=== PATIENT | male | born 2000 | race Caucasian/White ===

== ENCOUNTER 2022-08-19 00:35 | Day surgery (SDC) | payer BC, SELFPAY ==
[2022-08-19] VITALS (8 sets, daily range): BP systolic 114–179; BP diastolic 51–81; PULSE 90–114; RESP 16–18; TEMP 36.1–37; O2SAT 97–100; BMI 29.8
--- NOTE | ~2022-08-19 | XR_ITS ---
EXAMINATION: XR CHEST CLINICAL INFORMATION: Chest pain COMPARISON: None TECHNIQUE: Frontal view of the chest was obtained. FINDINGS: The lungs are well expanded. There is no focal consolidation, edema, or effusion. No pneumothorax. The cardiomediastinal silhouette is within normal limits. No acute osseous abnormality. XR/XR chest 1V IMPRESSION: Clear lungs.
--- NOTE | 2022-08-19 04:34 | ED_ITS ---
HPI - General Adult General Chief complaint: General Medical Stated complaint: trouble swallowing Time Seen by Provider: 08/19/22 04:30 History of Present Illness HPI narrative: Patient is a 22-year-old male presented today with having difficulty swallowing own saliva difficulty swallowing any liquids or solids after eating a piece of steak. Patient denies any chest pain any shortness of breath denies any changes in voice. Vaccinated for COVID. No history of similar symptoms in the past. Symptoms been ongoing for the last 10 hours Related Data Allergies Allergy/AdvReac Type Severity Reaction Status Date / Time tree nut Allergy Unknown Uncoded 08/02/14 00:00 Review of Systems Review of Systems: Positive difficulty swallowing any liquid or solid No changes in voice No changes in breathing. Yes all other systems are reviewed and are negative [facility] Past Medical History Attestation statement: The following information was validated with the patient. Social History Social History Patient Tobacco Use Status: Never used Tobacco Use of substances other than those prescribed or required for medical reasons: Yes Advance Directives: No Advance Directives Information Provided: No Physical Exam ED Vital Signs: Vital Signs - 24 hr 08/19/22 00:45 08/19/22 05:09 Temperature 98.5 F 98.6 F Pulse Rate 100 99 Respiratory Rate 18 16 Blood Pressure 179/74 H 151/81 H Pulse Oximetry 99 100 Oxygen Delivery Method Room Air Room Air BMI result Body Mass Index 29.8 Appearance: Alert. Oriented X3. No acute distress. Holding a bag in front of him Eyes: Pupils equal, round and reactive to light. ENT: Pharynx normal. Neck: Normal inspection. Neck supple. No lymph nodes noted. No crepitus CVS: Normal heart rate and rhythm. Pulses normal. Normal S1 and S2 Respiratory: No respiratory distress. Breath sounds normal. No Wheezing. No rales Abdomen: Soft and nontender. No rigidity. No distention. good BS x4 Skin: Skin warm and dry. Normal skin color. Normal skin turgor. Extremities: No lower extremity edema. Neurovascular intact to all extremities. No Lacerations. No Rash Neuro: Oriented X 3. No motor deficit. No sensory deficit. Moving all extermities. No slurred speech Medical Decision Making MDM Narrative Medical decision making narrative: Signs and symptoms consistent with food impaction. Will go ahead and give some IV fluids. Baseline labs ordered. Will get a COVID test. If the glucagon did not work we will go ahead and contact GI for possible endoscopy Case D/W Dr Lipscomb Lab Data Result diagrams: 08/19/22 05:18 08/19/22 05:18 Labs: Lab Results 08/19/22 08/19/22 08/19/22 Range/Units 05:16 05:18 05:18 WBC 10.6 (4.8-10.8) X10*3/uL RBC 5.47 (4.60-5.80) X10*6/uL Hgb 15.7 (14.0-18.0) g/dl Hct 46.1 (42.0-52.0) % MCV 84.3 (80.0-98.0) fL MCH 28.7 (27.0-33.0) pg MCHC 34.1 (31.0-36.0) g/dl RDW 12.4 (11.0-16.0) % Plt Count 348 (160-400) X10*3/uL MPV 9.9 (9.4-12.4) fL Immature Gran % (Auto) 0.2 (0.0-0.4) % Neut % (Auto) 69.3 (45-73) % Lymph % (Auto) 21.1 (20-40) % [place] % (Auto) 8.1 (2-11) % Eos % (Auto) 0.8 (0-4) % Baso % (Auto) 0.5 (0-2) % Lymph # (Auto) 2.2 (1.2-4.9) X10*3/uL [place] # (Auto) 0.9 (0.1-1.2) X10*3/uL Eos # (Auto) 0.1 (0.0-0.4) X10*3/uL Baso # (Auto) 0.1 (0.0-0.2) X10*3/uL Abs Immat Gran (auto) 0.02 (0.00-0.03) X10*3/uL Absolute Neuts (auto) 7.4 (2.0-8.3) x10*3/uL Absolute Nucleated RBC 0.000 (0.0-0.012) X10*3/uL Nucleated RBC % (auto) 0.0 (0.0-0.2) /100WBC Sodium 144 (135-145) mmol/L Potassium 4.0 (3.3-5.1) mmol/L Chloride 105 (96-108) mmol/L Carbon Dioxide 24 (22-29) mmol/L Anion Gap 19 (12-20) BUN 16 (9-16) mg/dL Creatinine 0.99 (0.5-1.4) mg/dL Estim Creat Clear Calc 145.5 Estimated GFR > 60 Random Glucose 89 (60-115) mg/dL Calcium 10.2 (8.4-10.2) mg/dL Total Bilirubin 0.6 (0.0-1.0) mg/dL Direct Bilirubin 0.2 (0.0-0.5) mg/dL AST 20 (5-37) U/L ALT 25 (0-40) U/L Alkaline Phosphatase 97 (39-117) U/L Total Protein 8.4 H (6.5-8.0) g/dL Albumin 4.9 (3.5-5.0) g/dL Lipase 9 (8-78) U/L COVID-19 ([facility]) Positive A (Negative) COVID-19 Clin Com See Note Discharge Plan Discharge Clinical Impression: Food impaction of esophagus Patient Disposition: Admitted As Inpatient
[2022-08-19] MEDS: 0.9 % Sodium Chloride 1,000 ML 999 ML IV (05:20)
[2022-08-19 05:24] LABS: Basophils Absolute Auto 0.1 X10*3/uL (0.0-0.2); Basophils Percent Auto 0.5 % (0-2); Eosinophils Absolute Auto 0.1 X10*3/uL (0.0-0.4); Eosinophils Percent Auto 0.8 % (0-4); Hematocrit 46.1 % (42.0-52.0); Hemoglobin 15.7 g/dl (14.0-18.0); Imm Gran Abs Auto 0.02 X10*3/uL (0.00-0.03); Imm Gran Pct Auto 0.2 % (0.0-0.4); Lymphocytes Absolute Auto 2.2 X10*3/uL (1.2-4.9); Lymphocytes Percent Auto 21.1 % (20-40); MANUAL DIFF FLAG NO; Mean Corpuscular HGB Conc 34.1 g/dl (31.0-36.0); Mean Corpuscular Hemoglobin 28.7 pg (27.0-33.0); Mean Corpuscular Volume 84.3 fL (80.0-98.0); Mean Platelet Volume 9.9 fL (9.4-12.4); Monocytes Absolute Auto 0.9 X10*3/uL (0.1-1.2); Monocytes Percent Auto 8.1 % (2-11); Neutrophils Absolute Auto 7.4 x10*3/uL (2.0-8.3); Neutrophils Percent Auto 69.3 % (45-73); Platelet Count 348 X10*3/uL (160-400); Red Blood Count 5.47 X10*6/uL (4.60-5.80); Red Cell Distribution Width 12.4 % (11.0-16.0); White Blood Count 10.6 X10*3/uL (4.8-10.8)
[2022-08-19 05:30] LABS: COVID-19 Test Positive (Negative)
[2022-08-19 05:40] LABS: Alanine Aminotransferase 25 U/L (0-40); Albumin Level 4.9 g/dL (3.5-5.0); Alkaline Phosphatase 97 U/L (39-117); Anion Gap 19 (12-20); Aspartate Amino Transferase 20 U/L (5-37); Bilirubin Direct 0.2 mg/dL (0.0-0.5); Bilirubin Total 0.6 mg/dL (0.0-1.0); Blood Urea Nitrogen 16 mg/dL (9-16); Calcium 10.2 mg/dL (8.4-10.2); Carbon Dioxide 24 mmol/L (22-29); Chloride 105 mmol/L (96-108); Creatinine Clr Calc Pharmacy 145.5; Estimated Glomerular Filt Rate > 60; Glucose Random 89 mg/dL (60-115); Lipase 9 U/L (8-78); Sodium 144 mmol/L (135-145); Total Protein 8.4 g/dL (6.5-8.0)
--- NOTE | 2022-08-19 06:48 | PC.NURSE ---
pt able to speak in full sentence. no sob or respiratory distress.
--- NOTE | 2022-08-19 07:55 | PC.NURSE ---
PT AWAITING GI. STILL UNABLE TO SWALLOW SALIVA. MOTHER AT BEDSIDE
--- NOTE | 2022-08-19 08:56 | PM.GICN ---
History of Present Illness Data of Consult Service Date: 08/19/22 Requesting physician: Barbara Byrd Primary Care Provider: Lai Carbajal MD HPI Reason for consult: Food impaction This is a 22-year-old gentleman with no significant past medical history who presented to the emergency room last night for difficulty swallowing. History obtained from the patient, who states that around 6.30 p.m. he was eating steak stirfry when he suddenly felt a piece get stuck in his upper throat. He then proceed to cough and vomit a couple of times. Since then he has not been able to get anything down including his own saliva. Has never had a similar episode before. No personal or fam hx of atopy. In the ER, he was given a glucagon trial without much effect. Currently, continues to have sensation of food stuck in his mid esophagus with chest tightness and some hoarseness of voice. No fevers, chills, shortness of breath. Pt was also incidentally found to be covid negative. 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 Review of Systems Review of Systems: Yes all other systems are reviewed and are negative PMFSH Social History Social History Patient Tobacco Use Status: Never used Tobacco Use of substances other than those prescribed or required for medical reasons: Yes Advance Directives: No Advance Directives Information Provided: No Meds Allergies Allergy/AdvReac Type Severity Reaction Status Date / Time tree nut Allergy Unknown Uncoded 08/02/14 00:00 Physical Exam Vital Signs: Vital Signs: Last Vital Signs Temp 98.6 F 08/19/22 05:09 Pulse 90 08/19/22 07:54 Resp 18 08/19/22 07:54 BP 140/78 H 08/19/22 07:54 Pulse Ox 99 08/19/22 07:54 O2 Del Method 08/19/22 07:54 BMI result Body Mass Index 29.8 Gen appear: No acute distress, well nourished HEENT: no icterus, no cervical lymphadenopathy Chest: No overt resp distress CVS: S1/S2, regular Abd: soft, nontender, nondistended Psych: Stable affect, answering questions appropriately Neuro: A/Ox3 noted to move all extremities spontaneously Ext: no peripheral edema Results Labs CBC & Chem 7: 08/19/22 05:18 08/19/22 05:18 Labs: Short CBC 08/19/22 Range/Units 05:18 WBC 10.6 (4.8-10.8) X10*3/uL Hgb 15.7 (14.0-18.0) g/dl Hct 46.1 (42.0-52.0) % Plt Count 348 (160-400) X10*3/uL BMP 08/19/22 05:18 Sodium 144 Potassium 4.0 Chloride 105 Carbon Dioxide 24 BUN 16 Creatinine 0.99 Calcium 10.2 Liver Function 08/19/22 Range/Units 05:18 Total Bilirubin 0.6 (0.0-1.0) mg/dL Direct Bilirubin 0.2 (0.0-0.5) mg/dL AST 20 (5-37) U/L ALT 25 (0-40) U/L Alkaline Phosphatase 97 (39-117) U/L Albumin 4.9 (3.5-5.0) g/dL Assessment and Plan (1) Food impaction of esophagus: Status: Acute Plan DDx include sporadic obstruction, EoE, esophageal ring/web. Less likely to be stricture or dysmotility. Will plan for urgent endoscopy today for food bolus management. I reviewed the procedure with him and his mother at bedside including possible adverse events of perforation, bleeding, infection. They verbalise understanding and agree to proceed with EGD. Please keep the patient strict NPO. Procedures Date of Service Date of Service: 08/19/22
--- NOTE | 2022-08-19 09:32 | HO.ANESPROP2 ---
HPI - Anesthesia Eval Consult details Narrative: food impaction PMFSH Active Problems Active Problems: All Active Problems (Updated 08/19/22 @ 04:37 by Barbara Byrd MD) Food impaction of esophagus (Acute) Family History Family history of problems with anesthesia: No Surgical History History of Problems with Anesthesia: No Social History Social History Patient Tobacco Use Status: Never used Tobacco Use of substances other than those prescribed or required for medical reasons: Yes Advance Directives: No Advance Directives Information Provided: No Meds Allergies Allergy/AdvReac Type Severity Reaction Status Date / Time tree nut Allergy Unknown Uncoded 08/02/14 00:00 Exam Exam Date and Time: August 19, 2022 0932 Height,Weight and Vital Signs: Height 6 ft Weight 99.79 kg Last Vital Signs Temp 98.6 F 08/19/22 05:09 Pulse 90 08/19/22 07:54 Resp 18 08/19/22 07:54 BP 140/78 H 08/19/22 07:54 Pulse Ox 99 08/19/22 07:54 O2 Del Method 08/19/22 07:54 Pertinent Lab Results Pertinent Lab Results: Laboratory Tests 08/19/22 08/19/22 08/19/22 05:16 05:18 05:18 WBC 10.6 RBC 5.47 Hgb 15.7 Hct 46.1 MCV 84.3 MCH 28.7 MCHC 34.1 RDW 12.4 Plt Count 348 MPV 9.9 Immature Gran % (Auto) 0.2 Neut % (Auto) 69.3 Lymph % (Auto) 21.1 [place] % (Auto) 8.1 Eos % (Auto) 0.8 Baso % (Auto) 0.5 Lymph # (Auto) 2.2 [place] # (Auto) 0.9 Eos # (Auto) 0.1 Baso # (Auto) 0.1 Abs Immat Gran (auto) 0.02 Absolute Neuts (auto) 7.4 Absolute Nucleated RBC 0.000 Nucleated RBC % (auto) 0.0 Sodium 144 Potassium 4.0 Chloride 105 Carbon Dioxide 24 Anion Gap 19 BUN 16 Creatinine 0.99 Estim Creat Clear Calc 145.5 Estimated GFR > 60 Random Glucose 89 Calcium 10.2 Total Bilirubin 0.6 Direct Bilirubin 0.2 AST 20 ALT 25 Alkaline Phosphatase 97 Total Protein 8.4 H Albumin 4.9 Lipase 9 COVID-19 ([facility]) Positive A COVID-19 Clin Com See Note Airway Mallampati Class: II TM Dist: >3cm Neck ROM: Full Heart: [id number] Lungs: cta b/l Assessment and Plan Assessment Anesthesia Assessment: Anesthesia Plan Discussed and Chart Reviewed Final Anesthetic Review Family History of Problems with Anesthesia: No History of Problems with Anesthesia: No NPO: Yes ASA Class: II and Emergency Final Preanesthetic Review: No Changes in Pt Med Stat, Meds/Allgs Chart Reviewed, Consent Obtained/Reviewed and Anes Risks/Benef Reviewed Patient Risk: Intermediate Procedure Risk: Intermediate Assessment/Block/Sedation in SS: Assess/Block/Sedation-SS Anesthetic Plan Anesthetic Plan: GA and Agree w/ Assess. and Plan Disposition: Standard PACU
--- NOTE | 2022-08-19 10:44 | P.OP_ITS ---
Operative Note Operative Note Date of Service: 08/19/22 Narrative: Procedure: Esophagogastroduodenoscopy Endoscopist: Alannah Lipscomb MD Indication: Food impaction Anesthesia Provider: Leyda Han CRNA Anesthesia Type: General ?? EGD Procedure:?? The procedure, indications, preparation and potential complications were reviewed with the patient, who indicated understanding and gave written informed consent to proceed. A physical exam was performed. The patient was electively intubated for airway protection the anesthesiologist. The endoscope was introduced through the mouth, and advanced to the second part of duodenum. The mucosa was carefully examined on slow withdrawal of the endoscope. The patient tolerated the procedure well. There were no immediate complications.? ? EGD Findings:? * Esophagus:? Mucosal rings and linear furrows were noted throughout the esophagus. Grade D esophagitis from 32 cm to 37 cm was noted with contact oozing. No food bolus encountered. The Z line was at 37cm. Middle and upper esophagus forceps biopsies were obtained to rule out eosinophilic esophagitis, tug sign positive. * Stomach:? Normal mucosa was noted in the stomach. A few polyps were noted in the fundus of the stomach with appearance consistent with fundic gland polyps. * Duodenum:? Normal mucosa was noted in the whole of the examined duodenum. ? EGD Impressions:? * Esophagitis from 32 to 37 cm likely from stasis injury from food bolus * Mucosal changes suggestive of eosinophilic esophagitis (biopsy) * Fundic gland polyps * Normal duodenum ?? Recommendations:?? * Follow biopsy results. Our office will call or send a letter with results within 7-10 days. * Start high dose PPI twice a day and continue for at least 8 weeks. * Patient will likely need a repeat EGD for re-evaluation. Will set up an office follow up to review. * Avoid NSAIDs. * Cut up food in small piece and chew food thoroughly. Avoid cruciferous vegetables and tough meat. * Above has been reviewed with the patient.
== END 2022-08-19 13:00 | disposition home or self-care (01) ==
LOC: HO.ED 11:05 → HO.SSS 11:25
PROVIDERS: Emergency Provider Emergency Medicine Emergency Medical Services; PCP Pediatrics; Visit Provider Internal Medicine
PROC: 0DJ08ZZ Inspection of Upper Intestinal Tract, Via Natural or Artificial Opening Endoscopic (ICD-10-PCS; CPT 43235; principal; 2022-08-19 10:00)
DX: T18.128A Food in esophagus causing other injury, initial encounter (principal); R13.10 Dysphagia, unspecified; R49.0 Dysphonia; K20.80 Other esophagitis without bleeding; K31.7 Polyp of stomach and duodenum; U07.1 COVID-19; Z20.822 Contact with and (suspected) exposure to COVID-19; X58.XXXA Exposure to other specified factors, initial encounter; Y93.9 Activity, unspecified; Y92.9 Unspecified place or not applicable; Y99.9 Unspecified external cause status; Z79.899 Other long term (current) drug therapy
CPT/HCPCS: 43239; 71045; 80048; 80076; 83690; 85025; 87635; 88305; 96361; 96374; 99284; 99285; J0330; J1610; J2250; J3010